=== PATIENT | female | born 1965 | race Caucasian/White ===

== ENCOUNTER 2016-12-04 09:57 | Outpatient (CLI) | payer BC ==
--- NOTE | 2016-12-04 10:40 | DIAGNOSTIC IMAGING REPORT ---
PROCEDURE: DEXA BONE DENSITY STUDY CLINICAL INDICATION: OSTEOPENIA COMPARISON: DEXA 02/28/2013 FINDINGS: LUMBAR SPINE: Bone mineral density 0.827 g/cm2, T score -2.0 osteopenia which represents a 4.6% improvement from the previous study LEFT HIP: Bone mineral density 0.803 g/cm2, T score -1.1 osteopenia which represents a 0.3% improvement since the previous study LEFT FEMORAL NECK: Bone mineral density 0.668 g/cm2, T score -1.6 osteopenia which represents a 6.7% improvement since the previous study FRACTURE RISK CALCULATION ( when applicable): 10-year fracture risk of a major osteoporotic fracture and of a hip fracture not reported because the patient is being treated for osteoporosis (T score greater or equal to -1.0 to: NORMAL) (T score from -1.1 to -2.4: OSTEOPENIA) (T score ess than or equal to -2.5: OSTEOPOROSIS) IMPRESSION: 1. Osteopenia spine hip and femoral neck with improvement since the previous study
--- NOTE | 2016-12-04 14:01 | DIAGNOSTIC IMAGING REPORT ---
PROCEDURE: MG BILATERAL SCREENING W/CAD INDICATION: Screening. Family history breast carcinoma (grandmother). TECHNIQUE: Bilateral CC and MLO digital views. COMPARISON: Compared to 01/17/2014 and 03/03/2007. FINDINGS: Computer-aided detection applied. Dense parenchymal pattern. There is a 2.5 cm ovoid density in the upper outer right breast with partially obscured margins. IMPRESSION: 1. There is a 2.5 cm ovoid density in the upper outer right breast. While this may represent a cyst, underlying solid mass should also be considered. Further mammographic views (true lateral view, CC and MLO spot compression views are recommended. In addition, right breast ultrasound is recommended. RESULT CODE: 0- Incomplete; needs additional evaluation. A. A negative report should not delay biopsy if a dominant or clinically suspicious mass is present. 10-15% of cancers are not identified by x-ray. B. A negative report may reinforce clinical impression. C. Adenosis and dense breasts may obscure an underlying neoplasm. D. False positive reports average 6-10%. E.. A yearly screening mammogram is recommended. A reminder letter will be scheduled.
[2016-12-24] MEDS ORDERED: QVAR40 MCG IN (12:13)
[2016-12-24] MEDS ORDERED: ESTRADIOL2 MG PO (12:14)
[2016-12-24] MEDS ORDERED: IBANDRONATE SO150 MG PO (12:14)
[2016-12-24] MEDS ORDERED: MEDROXYPROGESTE10 MG PO (12:17)
[2016-12-24] MEDS ORDERED: LEVOTHYROXINE100 MCG PO (12:19)
[2016-12-24] MEDS ORDERED: HYDROCORTISONE5 MG PO (12:21)
[2016-12-24] MEDS ORDERED: SOLU CORTEF IM (12:28)
[2016-12-24] MEDS ORDERED: VENTOLIN HFA IN (12:29)
[2016-12-24] MEDS ORDERED: VITAMIN D350000 UNI1 PO (12:31)
[2016-12-24] MEDS ORDERED: KRILL OIL1000 MG PO (12:32)
[2016-12-24] MEDS ORDERED: VOLTAREN1 % TOP (12:33)
== END 2016-12-04 23:00 ==
LOC: MAM SRH 09:57
DX: Z13.820 Encounter for screening for osteoporosis (principal); Z12.31 Encounter for screening mammogram for malignant neoplasm of breast; M85.89 Other specified disorders of bone density and structure, multiple sites

== ENCOUNTER 2016-12-11 13:59 | Outpatient (CLI) | payer BC ==
--- NOTE | 2016-12-11 15:25 | DIAGNOSTIC IMAGING REPORT ---
PROCEDURE: MG UNILATERAL DIAG-RT W/CAD INDICATION: Follow-up right breast nodule. TECHNIQUE: True lateral digital view of the right breast. In addition, spot compression CC and MLO views were obtained of the upper outer right breast ( region of clinical concern). Finally, high-resolution right breast ultrasound was performed (18 mHz). COMPARISON: Comparison made to screening mammogram study on 12/04/2016. FINDINGS: MAMMOGRAM: Computer-aided detection applied. Moderately dense parenchymal pattern. Confirmation of a 2.5 cm ovoid nodular density is obscured margins in the upper outer right breast (1030 position, middle third). BREAST ULTRASOUND: There is a 2.5 x 1.9 cm well-circumscribed ovoid solid nodular mass in the upper outer right breast, which corresponds to the mammographic nodule. This is associated with mild increased vascularity. IMPRESSION: 1. There is a 2.5 cm ovoid solid mass in the upper outer right breast. The overall appearance is most compatible with a benign fibroadenoma. Underlying malignant mass (e.g., cystosarcoma phylloides tumor) is less likely. 2. Tissue biopsy (ultrasound-guided versus needle localization/surgical excisional biopsy). 3. Findings discussed with the patient and called to Dr. Charli Caballero. RESULT CODE: 4- Suspicious abnormality - biopsy should be considered. A. A negative report should not delay biopsy if a dominant or clinically suspicious mass is present. 10-15% of cancers are not identified by x-ray. B. A negative report may reinforce clinical impression. C. Adenosis and dense breasts may obscure an underlying neoplasm. D. False positive reports average 6-10%. E.. A yearly screening mammogram is recommended. A reminder letter will be scheduled.
[2016-12-24] MEDS ORDERED: QVAR40 MCG IN (12:13)
[2016-12-24] MEDS ORDERED: ESTRADIOL2 MG PO (12:14)
[2016-12-24] MEDS ORDERED: IBANDRONATE SO150 MG PO (12:14)
[2016-12-24] MEDS ORDERED: MEDROXYPROGESTE10 MG PO (12:17)
[2016-12-24] MEDS ORDERED: LEVOTHYROXINE100 MCG PO (12:19)
[2016-12-24] MEDS ORDERED: HYDROCORTISONE5 MG PO (12:21)
[2016-12-24] MEDS ORDERED: SOLU CORTEF IM (12:28)
[2016-12-24] MEDS ORDERED: VENTOLIN HFA IN (12:29)
[2016-12-24] MEDS ORDERED: VITAMIN D350000 UNI1 PO (12:31)
[2016-12-24] MEDS ORDERED: KRILL OIL1000 MG PO (12:32)
[2016-12-24] MEDS ORDERED: VOLTAREN1 % TOP (12:33)
== END 2016-12-11 23:00 ==
LOC: MAM SRH 13:59
DX: R92.8 Other abnormal and inconclusive findings on diagnostic imaging of breast (principal)

== ENCOUNTER 2016-12-28 09:24 | Day surgery (SDC) | payer BC ==
[~2016-12-28] VITALS: Ht 172.1 cm; Wt 82.0 kg
[~2016-12-28 09:24] MED LIST: ESTRADIOL2 MG PO; HYDROCORTISONE5 MG PO; IBANDRONATE SO150 MG PO; KRILL OIL1000 MG PO; LEVOTHYROXINE100 MCG PO; MEDROXYPROGESTE10 MG PO; QVAR40 MCG IN; SOLU CORTEF IM; VENTOLIN HFA IN; VITAMIN D350000 UNI1 PO; VOLTAREN1 % TOP
--- NOTE | 2016-12-28 09:43 | NUR ---
preop teaching done and understood
--- NOTE | 2016-12-28 09:58 | NUR ---
DONE TO XRAY IN WHEEL CHAIR; WARM BLANKETS AND ROBE APPLIED.
--- NOTE | 2016-12-28 11:43 | DIAGNOSTIC IMAGING REPORT ---
PROCEDURE: US PREOP BREAST WIRE LOC-RIGHT INDICATION: RT BREAST MASS TECHNIQUE: Informed consent was obtained and the patient was informed of the usual risks and complications including infection, bleeding, and allergy. Supine LPO position. COMPARISON: Comparison is made to right breast ultrasound 12/11/2016. FINDINGS: Following sterile preparation and 1% lidocaine local anesthetic, ultrasound guidance was utilized to place a 16-gauge angiocatheter and hook wire into the upper outer right breast and directed through the posterior aspect of a at 2.5 cm outer right breast mass/nodule. The catheter was secured to the patient's side (Steri-Strips, Tegaderm). The patient tolerated the procedure reasonably with mild discomfort with injection for anesthesia. The patient was transferred back to the floor to in satisfactory condition. IMPRESSION: 1. Successful preoperative ultrasound-guided needle localization of right breast mass. 2. Findings discussed with Dr. Gan.
[2016-12-28] MEDS ORDERED: HYCET1 ML PO (12:06)
--- NOTE | 2016-12-28 12:08 | Provider's Discharge Care Plan ---
Problem, Goal, Plan Problem List 1. S/P right breast biopsy Goals: Diagnostic testing Instructions: Follow up as directed, Take meds as directed, RENÉE CHEST WRAP
--- NOTE | 2016-12-28 12:08 | Provider's Discharge Care Plan ---
Problem, Goal, Plan Problem List 1. S/P right breast biopsy Goals: Diagnostic testing Instructions: Follow up as directed, Take meds as directed, RENÉE CHEST WRAP
--- NOTE | 2016-12-28 13:13 | NUR ---
ARRIVED IN UNIT, RESPONSIVE, FORGETFUL WHEN TALKING AND ASKING QUESTIONS RECENTLY ANSWERED
--- NOTE | 2016-12-28 13:18 | DIAGNOSTIC IMAGING REPORT ---
PROCEDURE: MG SURGICAL BREAST SPEC-RT INDICATION: SPECIMEN FOR PATHOLOGY TECHNIQUE: AP views without and with grid localization technique. COMPARISON: Comparison is made to ultrasound needle localization earlier today (12/28/2016) and right mammogram (12/11/2016). FINDINGS: Confirmation of surgical excision of right breast mass (centered at F-13). IMPRESSION: 1. Confirmation of surgical excision of right breast mass. 2. Findings called to the surgical department (Dr. Gan).
--- NOTE | 2016-12-28 13:18 | NUR ---
OFFERED ICE CHIPS FOR ORAL COMFORT, BAD TASTE IN MOUTH. DENIES SURGICAL SITE DISCOMFORT, NAUSEA. VOICES AWARENESS OF NEED TO LEAVE RENÉE DRESSING TO SURGICCAL SITE INTACT.
--- NOTE | 2016-12-28 14:24 | NUR ---
LE; REC'D FROM OR; SPONT RESP. DSG =D\I. EATING AND DRINKING WELL.
--- NOTE | 2016-12-28 14:25 | NUR ---
DC INFO GIVEN AND UNDERSTOOD. UP TO BR. COMFORTABLE.
[2016-12-28 14:31] VITALS: BP 108/70
--- NOTE | 2016-12-28 14:33 | OPERATIVE REPORT ---
DATE OF SURGERY: 12/28/2016 SURGEON: Suzanna Gan III, MD ELECTRONIC GLUING MACHINE OPERATOR: None. PREOPERATIVE DIAGNOSIS: 1. Right breast mass POSTOPERATIVE DIAGNOSIS: 1. Right breast mass PROCEDURE PERFORMED: 1. Needle localized right breast biopsy ANESTHESIA: LMA. Local, 1% Xylocaine with epinephrine, 0.5% Marcaine with epinephrine. INDICATIONS: A 51-year-old female who, on routine mammogram, was noted to have the abnormality in the upper outer quadrant of the right breast. On physical examination, you could not palpate this, and the patient was therefore scheduled for needle localization and excisional biopsy. FINDINGS: Mass in question was rubbery, measuring approximately 2 x 2 cm in size. SURGICAL TECHNIQUE: The patient was brought to the operating room and placed in the dorsal supine position where she underwent general LMA anesthesia by the anesthesiology department. Her right breast was prepped with Betadine and draped in a sterile fashion. A curvilinear incision made about the exit site of the needle localization in the right upper outer quadrant of her breast. This needle was then followed in the breast tissue to its tip, and the rubbery mass was palpated and excised using sharp dissection and handed off the field and sent to Radiology, who felt that the mass in question was within the specimen. The wound was irrigated with warm normal saline and antibiotic solution. Palpation of the cavity revealed no other dominant masses or irregularities. Hemostasis assured. The skin was approximated using running 4-0 subdermal Polysorb continuous sutures. Steri- Strips, pressure occlusive dressing was placed over the site. The patient's chest was wrapped in an Andrés wrap. The patient's LMA was removed, and she was transferred to the recovery room in stable condition. There were no intraoperative or anesthetic complications.
== END 2016-12-28 14:43 | disposition home or self-care (01) ==
LOC: SDC SRH 09:24 → SCU SRH 09:25 → US SRH 10:15 → EDSTATUS 10:15 → SDC SRH 10:15 → US SRH 10:30 → SDC SRH 14:43
PROVIDERS: Specialist
PROC: 0HBT0ZX Excision of Right Breast, Open Approach, Diagnostic (ICD-10-PCS; principal; 2016-12-28 11:30)
DX: D24.1 Benign neoplasm of right breast (principal); J44.9 Chronic obstructive pulmonary disease, unspecified; Z72.0 Tobacco use